=== PATIENT | male | born 1940 | race Caucasian/White ===

== ENCOUNTER 2019-06-09 16:27 | Inpatient (IN) | payer OTHER ==
[~2019-06-09] VITALS: Ht 174 cm; Wt 62.5 kg
[2019-06-09 16:28] VITALS: BP 132/106
[2019-06-09] MEDS ORDERED: LIPITOR40 MG PO (16:38)
[2019-06-09] MEDS ORDERED: CIPRO250 M2 PO (16:39)
[2019-06-09] MEDS ORDERED: CARBIDOPA-LEVO1 EAC5 PO (16:39)
[2019-06-09] MEDS ORDERED: UNICOMPLEX M TA1 TA1 PO (16:40)
[2019-06-09] MEDS ORDERED: CO Q-10100 M1 PO (16:40)
[2019-06-09] MEDS ORDERED: ARICEPT10 M1 PO (16:41)
[2019-06-09] MEDS ORDERED: COLACE100 MG PO (16:41)
[2019-06-09] MEDS ORDERED: CHILDREN'S ASPI81 M1 PO (16:41)
[2019-06-09] MEDS ORDERED: ESCITALOPRAM PO (16:42)
[2019-06-09] MEDS ORDERED: NAMENDA 10 MG T10 MG PO (16:43)
[2019-06-09] MEDS ORDERED: MAGNESIUM250 M1 PO (16:43)
[2019-06-09] MEDS ORDERED: LORAZEPAM 0.50.5 MG PO (16:43)
[2019-06-09] MEDS ORDERED: TOPROL XL25 MG PO (16:45)
[2019-06-09] MEDS ORDERED: NOURIANZ40 MG PO (16:45)
[2019-06-09] MEDS ORDERED: MIRALAX119 GM PO (16:45)
[2019-06-09] MEDS ORDERED: PRAMIPEXOLE ER3 MG PO (16:46)
[2019-06-09] MEDS ORDERED: RYTARY ER 36.21 EACH PO (16:47)
[2019-06-09] MEDS ORDERED: VESICARE 5 MG TA5 M1 PO (16:48)
[2019-06-09] MEDS ORDERED: FLOMAX0.4 MG PO (16:49)
[2019-06-09] MEDS ORDERED: VESICARE10 M1 PO (16:49)
[2019-06-09] MEDS ORDERED: INTERMEZZO3.5 MG SUBLING (16:50)
[2019-06-09 17:35] VITALS: BP 142/74
--- NOTE | 2019-06-09 18:29 | NUR ---
PT. TRANSFERED FROM ER TO [facility] AT 181. PT. ARRIVED ON A GURNEY. HE HAS HIS EYES CLOSED, IS NOT RESPONDING TO NURSES VOICE. HE IS "HUMMING" AND TEARING AT HIS CLOTHING. HIS HAND WAS MOVED SEVERAL TIMES BUT HE RETURNS TO DOING THE SAME THING. VITALS WERE TAKEN. B/P WAS 173/92 PULSE86, TEMP 98.7 AXILLARY, AND RESP 20. HE IS 174 CM IN HEIGHT AND WEIGHS 73 KG.
[2019-06-09 19:28] VITALS: BP 184/88
--- NOTE | 2019-06-10 06:23 | NUR ---
Care transfered 06-09-191929 gained verbal consent from Dena Trinh, pt and DPOA for pt treatment. 1944 Pt in bed supine with eyes open, AAOx1 moaning, when asked about pain pt denies and stated "I just wanted to go home". pt was restless and moving and moaning and changing from sami, to greek and them swedish. Pt was cooperative during assessment, upon auscultation all lung graf clear, RR even and non-labored; HT S1 S2 with elevated pulse of 102, pt did present with anxiety; ABD Active WNL in all four quads ABD flat and soft. Approximately 1999 reviewed pt medication with Dr. Griffiths, and the following medication was d/c Aricept, Nourianz, Ambien, and the following Dr. Griffiths changed Multi-vit with iron and minerals d/c and replaced with Vit; Carbidopa levodopa d/c replaced with Sinmet please refer to emar and medication reconciliation for more information. Pt was seen by Dr. Griffiths in ER with AM machine coil assembler. Pt show no s/s of any acute distress. 629 pt was moved into day room by SHOVE UP in recliner, noted pt was calm and sitting still. Of note, per pt Dena she suggested using apple juice for medication admin. This RN finished the admit that was started approximately at 1814. Zero acute distres noted throughout this shift.
[2019-06-10 07:51] VITALS: BP 129/71
[2019-06-10 08:30] VITALS: BP 129/71
--- NOTE | 2019-06-10 09:55 | NUR ---
TALKED TO PT ANAIS, ON THE PHONE. SHE WAS JUST CHECKING ON HIM AND TO SEE IF HE IS AWAKE. PT SITTING IN DINING ROOM IN RECLINER. PT WAS SLEEPING APPEARS TO HAS SLEEP APNEA DUE TO BREATHING PATTERN. STATED HE WAS NOT ABLE TO DO A SLEEP STUDY, SHE STATED HE PROB. DOES HAVE SLEEP APNEA.
--- NOTE | 2019-06-10 12:15 | NUR ---
PT DID FEED SELF CARROTS AND USED CUP TO DRINK. PT STILL NEEDS ENCOURAGED TO EAT.
--- NOTE | 2019-06-10 16:30 | NUR ---
PT ABLE TO TALK TO ANAIS TODAY. PT HAS BEEN IN RECLINER MOST OF DAY. PT HAS PERIODS OF SLEEPING ON AND OFF. NO AGGRESSION OR ASSAULTIVE BEHAVIOR THIS SHIFT. PT STATED TO SENIOR DATA WAREHOUSE DEVELOPER THAT HE NEEDED TO USE BATHROOM. WHEN TAKEN BACK TO ROOM, HIS BRIEF WAS DRY.
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
[2019-06-10 19:56] VITALS: BP 149/65
[2019-06-10 20:05] VITALS: BP 149/69
--- NOTE | 2019-06-11 04:29 | NUR ---
06-09-18 care transfered 2004 pt sitting in day room AAOx1 pt reported he was at [facility], when reoriented to place, pt became Irritable, frustrated and fussy. After reassuring pt that he is safe and that [facility] was a better fit to assist him and that is why his Dena agreed to the transfer. After speaking with pt became clam after referencing . Upon auscultation Lungs clear, RR even and non-labored on RA; HT S1 S2 RR, Abd active WNL, soft and flat. Pt denies any pain and SI/HI. 2113 medication admin, pt takes pills one at a time with apple juice, no difficulty swallowing noted. Approximately 2199 pt moved from day room to room and reposition in bed and raised head of bed, then brought pt phone so he could talk with . Approximately 2209 pt present calm and cooperative. Moved bedside table right side noted pt has move control over tremors on right side, technical fellow slight stronger than left. Pt was then reposition for comfort and head of bed was lowered and feet slight elevated. Pt denies any pain and SI/HI. Later in evening pt rang sun and RN responded pt wanted water, assisted with water cup. Zero acute distres noted
[2019-06-11 08:55] VITALS: BP 123/67
--- NOTE | 2019-06-11 09:00 | NUR ---
PT AWAKE THIS AM. PT TOOK MEDS WITHOUT ANY ISSUES. PT STATED HE DIDN'T LIKE HIS NEIGHBOR TO TOUCH HIS CHAIR. PT IS IN RECLINER CHAIR. ASSISTED PT WITH SITTING UP BETTER. PT LEGS ARE STIFF. PT WAS ABLE TO FEED SELF AND DRINK JUICE.
--- NOTE | 2019-06-11 10:00 | NUR ---
PT TALKED TO ON THE PHONE. PT TOLD HIS IF HE IS HERE FOR 48 HOURS HE WILL . PT GOES FROM TALKING TO MOANING.
--- NOTE | 2019-06-11 10:25 | NUR ---
PT TALKING TO AGAIN PER HIS REQUEST. PT HIT WALL WITH HIS FIST BEFORE HE TALKED TO HIS .
--- NOTE | 2019-06-11 15:27 | NUR ---
SW met with Pt @ 10 am in the dinning room. Pt asked to speak to his several times. Pt became visibly upset and hit the wall next to where he was sitting. SW asked Pt why he was upset, Pt tearfully stated, " Can you please call my ". SW retrived the phone and called Pt's . SW sat with Pt while he spoke to his . Pt began crying while on the phone with his . Pt ended the call when hospitalist came to talk with Pt. SW spoke with Pt's who stated that the Pt was upset because he did not understand what was going on and did not trust the staff. SW assusred that Pt would be comforted to assist with him calming. SW got off the call with Pt's . SW continued to sit with Pt and offer emotional support. SW asked Pt what his concerns where. Pt stated, " I have been trying to talk to you all about what is going on and the things I need and everyone just walks by me." SW offered an apology and asked Pt what he was needing. Pt wanted to know why he was on the unit and how long he would be here. SW explained that Pt became combative at his alf and average stay on the unit is 3-14 days. Pt seemed okay with the answers. SW continued to assure Pt of his safety and offer support. Pt asked if he could get his nails filed and his glasses. SW filed clients nails and [facility] SW stayed with the Pt until he calmed down and fell asleep.
--- NOTE | 2019-06-11 18:16 | NUR ---
PT TALKING TO HIS ON PHONE. SHE CALLED EARLIER AND HE WANTED TO TALK TO HER AGAIN.
--- NOTE | 2019-06-11 18:50 | NUR ---
PT IS GETTING AGGITATED. PT STATED HE WANTED TO USE BATHROOM. PROVIDED PT A URINAL. PT THROW URINAL DOWN NOGUERA. ASSISTED PT BACK TO DINING ROOM. PT TRYING TO GET UP OUT OF RECLINER. PT DIDN'T UNDERSTAND AND TALKING ABOUT NATZI AND WANTING TO GO HOME.
[2019-06-11 20:15] VITALS: BP 123/67
--- NOTE | 2019-06-12 06:40 | NUR ---
4-26 at start of shift approximately 1848 pt combative with AM RN and Staff, assisted, care transfered at 191, 2014 pt AAOx1 pt reported he was at [facility] It remained combative agitated and hostile, reassured pt he was safe. 0 Manual Apical pulse taken 78 r/t medication administration. For more information please refer to intervention charting. Zero acute distress.
[2019-06-12 08:34] VITALS: BP 128/64
--- NOTE | 2019-06-12 14:16 | NUR ---
HAS HAD MINIMAL VERBALIZATION WITH THIS RN-SPEECH INCOHERNENT AT TIMES FRAGMENTED AND NON-GOAL DIRECTED. REQUIRES ASSIT WITH ALL ADLS-1-2 SBA TO TRANSFER TO/FROM BED AND TOILET. DOES TAKE MEDICATIONS WHOLE WITH APPLESAUCE/PUDDING. SMALL BM THIS SHIFT-INCONTINENT CARE PROVIDED-EPISODES OF RESTLESSNESS AND ATTEMPTING TO GET UP ON OWN DESPITE ATAXIA. ORIENTED TO NAME ONLY. REMAINS ON HIGH FALLS RISK
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
[2019-06-12 19:43] VITALS: BP 158/87
[2019-06-12 20:15] VITALS: BP 158/87
--- NOTE | 2019-06-13 05:27 | NUR ---
care transfered at 06-12-192014 Pt supine in bed, pt hard to arouse and immediately fell back to sleep. Unable to assess SI/HI and pain. 2100 medication administration held r/t sedation. Throughout rounding pt RR maintained even and nonlabored on RA. Zero acute distres noted.
[2019-06-13 09:00] VITALS: BP 153/73
--- NOTE | 2019-06-13 09:23 | NUR ---
ASSUMED CARE AT 0700 THIS MORNING. PT. STABLE, ASLEEP IN RECLINING CHAIR. HE TOOK HIS MEDICATIONS CRUSHED AND IN PUDDING WITHOUT PROBLEMS NOTED. NEEDS ASSISTANCE EATING. MOSTLY THIS MORNING HIS IS LETHARGIC AND SLEEPING. UNABLE TO COMMUNICATE WITH HIM. HE WAS COOPERATIVE WITH ASSESSMENT.
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
[2019-06-13 19:38] VITALS: BP 131/61
--- NOTE | 2019-06-14 04:45 | NUR ---
Assumed care of patient @ 1900. Pt calm et cooperative this shift. Pt isolates in room most of shift. Took medications crushed in applesauce without difficulty. Did not ambulate this shift. VSWNL. Health assessment with no abnormalities other than previously noted. Unable to assess SI/HI as pt was not communicative this shift, but does not demonstrate any acute distress at present time. Currently resting in bed with eyes closed. Will continue to monitor per protocol.
[2019-06-14 07:26] VITALS: BP 110/56
[2019-06-14 09:26] VITALS: BP 110/56
--- NOTE | 2019-06-14 11:12 | NUR ---
ASSUMED CARE THIS MORNING AT 0700. PT. IS SITTING IN A RECLINING CHAIR. HE IS AWAKE. HE IS NOT ACTING OUT THIS MORNING. HE TOOK HIS MEDICATIONS WHEN ASKED WITHOUT PROBLEMS. HE FED HIMSELF HIS BREAKFAST. HIS CALLED AND ASKED FOR AN UPDATE. SHE SPOKE WITH THE PATIENT AFTER OUR CONVERSATION.
[2019-06-14 19:26] VITALS: BP 127/70
--- NOTE | 2019-06-14 23:06 | NUR ---
Assumed care at 1900. At that time was sitting in a recliner, alert, conversant. Pt. denies pain and concerns. He is med compliant. He will be monitored q 12 minutes during the night.
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
[2019-06-15 07:27] VITALS: BP 155/65
--- NOTE | 2019-06-15 12:27 | NUR ---
Sitting in recliner without s/o distress. Sleeeping but awakens with stimuli. Alert to name only, some confused speech and at other times understandable, "Are you going to feed me?" when staff cutting up food. Denies SI/HI. Calm and compliant with meds. Took crushed in yogurt. Breath sounds clear t/o, bilaterally equal. Regular HR auscultated. Color pink with 3 sec capillary refill and palpable peripheral pulses. Incontinent of large amt urine per brief. Active bowel sounds over soft, rounded abdomen. 2 cm cyst per R neck. 1230 Sitting at table eating lunch independently. No s/o distress. called and spoke to him on phone.
[2019-06-15 19:25] VITALS: BP 167/73
--- NOTE | 2019-06-16 05:24 | NUR ---
Assumed care of pt @ 1900. Pt calm et cooperative this shift. Pt unable to appropriately communicate at this time. Pt makes garbled, gurgling sounds but does not articulate any formed words at the present time. Isolated in room all of shift. Took medications crushed in applesauce without difficulty. VSWNL. Health assessment with no abnormalities other than previously noted. Unable to assess SI/HI but pt does not appear to be in any apparent distress at present time. Currently resting in bed with eyes closed. Will continue to monitor per protocol.
[2019-06-16 08:00] VITALS: BP 147/99
--- NOTE | 2019-06-16 09:50 | NUR ---
PATIENT CARE ASSUMED AT 0700 AM - IN CHARLIE CHAIR WHEN ARRIVING ON UNIT IN DINING NOGUERA. PATIENT APPROACHED - IRRITABLE. WANTS TO LEAVE AND QUESTIONED STAFF. PATIENT DIFFICULT TO UNDERSTAND - NOTED UPPER EXTREMETIES SHAKING - CAN BE SHORT - WANTED TO KNOW WHEN HE WAS LEAVING. ADVISED [facility] WEDNESDAY PER DOCUMENTATION - PATIENT ADMINISTERED MEDICATIONS CRUSHED IN YOGURT. TOLERATED WELL AND FINISHED ALL YOGURT. TAKES LENGTH OF TIME BETWEEN SWALLOWS - CALLED TWICE AND DISCONNECTED FROM - BECOMES IRRITABLE WHEN TRYING TO REDIRECT PROPER USE OF CORDLESS PHONE.
--- NOTE | 2019-06-16 13:41 | NUR ---
RT progress note- Patient is limited in leisure participation as he often rests throughout the day in a recliner. He has enjoyed watching videos of ballroom dancing and conversing about his family history in [place]. Patient does display moderate difficulty concentrating on tasks for long periods of time.
[2019-06-16 19:35] VITALS: BP 138/66
[2019-06-16 19:45] VITALS: BP 138/66
--- NOTE | 2019-06-17 04:13 | NUR ---
-03-06 care transfered at 1915; 194 Pt sitting in recliner in day room, PT AAOx1, skin w/d. Pt presents blunt with guarding and fussy. Pt denies pain and SI/HI. During medication admin pt had zero difficults takes with apple juice then RN assisted pt with HS snack. Pt was moved out of day room by SHOE CASER and put in bed. During rounds pt supine resting with eyes closed RR even and non-labored, approximately 0200 pt moaning, respond and pt stated he had a nightmare, reassured then noted pt brief was dry but the chux pad saturated with yellow urine, pt bedding changed and pt wiped clean with wash cloth and barrier cream applied r/t to red indentation on left side left brief off per recommendation of rehab consultant. Pt was covered with clean sheet and blanket. Return to pt room pt was moaning and yelling. Pt reported he wants to go home now. 0305 pt resting supine with eyes closed, RR even and non-labored RA. Of note, bed in lowest position and alarm on. Zero acute distress noted.
[2019-06-17 07:20] VITALS: BP 117/73
--- NOTE | 2019-06-17 11:57 | NUR ---
Sitting in recliner without s/o distress. Keeps eyes closed most of the time, yellow drainage from R eye, no erythema. Alert and orientated to name only. Denies SI/HI. Talking about his favorite movies and landmarks later in morning. Breath sounds clear t/o, diminished in lower lobes. Reg HR auscultated. Color pink with brisk capillary refill and palpable peripheral pulses. Voided small amount concentrated urine in urinal with assistance. Active bowel sounds over soft, flat abdomen. Shaved and eyebrows trimmed. Showered with assistance of 2 staff. Able to take approximately 6 steps with assistance. Currently sitting in day room sleeping in recliner.
--- NOTE | 2019-06-17 16:59 | NUR ---
SW met with patient 1:1 in lieu of group due to COVID-19 restrictions. Patient was pleasant and talked about his son writing a book. He later began to discuss his fear of dying. SW offered support to patient.
[2019-06-17 19:39] VITALS: BP 137/72
--- NOTE | 2019-06-18 05:17 | NUR ---
Assumed care of pt @ 1900. Pt anxious et slightly agitated this shift with difficulty in going to sleep. Pt was given Zyprexa 5mg IM this shift for agitation. Took medications crushed in applesauce without difficulty. Was resting in bed with eyes open at beginning of shift. Pt spoke clearly but in another language most of the shift. Pt denies SI/HI. VSWNL. Health assessment with no abnormalities other than previously noted. Currently resting in bed with eyes closed. Will continue to monitor per protocol.
[2019-06-18 07:31] VITALS: BP 138/62
--- NOTE | 2019-06-18 09:06 | NUR ---
PATIENT CARE ASSUMED AT 0700 AM - PATIENT UP AND SLEEPING IN CHARLIE CHAIR IN DINING NOGUERA. VERY SEDATED - APPETITE POOR - GIVEN MEDICATIONS CRUSHED IN APPLESAUCE. TOLERATED WELL. NON RESPONSIVE VERBALLY BUT DID NOD HIS HEAD TO EXPRESS YES OR NO. IM OF ZYPREXA GIVEN LAST EVENING AT 2300 AND PATIENT REMAINS SLEEPING CURRENTLY.
--- NOTE | 2019-06-18 10:21 | NUR ---
LILA faxed updates too [facility].
[2019-06-18 11:24] LABS: CALCIUM 9.3 mg/dL (8.5-10.1); CREATININE 1.7 mg/dL (0.7-1.3); POTASSIUM 4.1 mmol/L (3.5-5.1)
[2019-06-18 19:50] VITALS: BP 154/96
--- NOTE | 2019-06-18 22:25 | NUR ---
Care assumed of patient at 1915: Patient resting quietly in bed at start of shift. Easily aroused. Calm, pleasant and cooperative. Answering questions appropriately. Stating that he does want to go home. Alert and oriented x3 with occasional confusion noted. Patient took HS medication whole in applesauce. Ate 50% applesauce cup. Drank 1 cup water with medication. Denied pain or discomfort. Patient fell back to sleep quickly after nursing assessment completed. No aggression or agitation observed. No delusional or paranoia behaviors observed.
[2019-06-19 07:28] VITALS: BP 109/61
--- NOTE | 2019-06-19 07:47 | NUR ---
PATIENT UP AND ALERT THIS MORNING. ACTUALLY ACKNOWLEDGED STAFF AND ASKED FOR SOMETHING TO DRINK. CLAIMS VERY THIRSTY. PATIENT APPEARS PLEASED ABOUT DISCHARGE TODAY - WAS LOOKING FOR NOW - DID NOT REALIZE IT WAS 7AM. PATIENT SLEPT ONLY 2 HOURS. ASSUMED CARE OF PATIENT AT 0700 AM.
[2019-06-19] MEDS ORDERED: TOPROL XL25 MG PO (09:10)
[2019-06-19] MEDS ORDERED: NORVASC5 MG PO (09:10)
[2019-06-19] MEDS ORDERED: LEXAPRO 10 MG T10 M1 PO (09:11)
[2019-06-19] MEDS ORDERED: OLANZAPINE10 M2 IM (09:16)
[2019-06-19] MEDS ORDERED: SEROQUEL 50 MG50 MG PO (09:16)
[2019-06-19] MEDS ORDERED: CARBIDOPA-LEVO1 EAC9 PO (09:17)
[2019-06-19] MEDS ORDERED: SINEMET CR 25-1 EACH PO (09:18)
[2019-06-19] MEDS ORDERED: MAGNESIUM400 MG PO (09:19)
--- NOTE | 2019-06-19 10:47 | NUR ---
[facility] D/C note [facility] faxed discharge docs including a temp log to [facility]. [facility] filed this fax and confirmation page in pt's hospital file. No other needs for [facility] team to address at this time.
--- NOTE | 2019-06-19 14:37 | NUR ---
PATIENT TRANSPORTED BY [facility] TO FACILITY AT 1340 VIA PRIVATE SUV. PATIENT SIGNED APPROPRIATE PAPERWORK. PROPERTY REVIEWED AND ALL POSSESSIONS SENT WITH PATIENT. PATIENT WAS ALERT AND AWAKE AND CALM. ALL MEDICAITONS ADMINISTERED PRIOR TO DISCHARGE. PATIENT BROUGHT DOWN VIA WHEELCHAIR. FACILITY CALLED AT 0245 TO ADVISE DEPARTURE AND REPORT -
--- NOTE | 2019-06-20 21:13 | D ---
[facility] [place] [address] DISCHARGE SUMMARY Name: KAYKAY HUBBARD Room #: 518A-A [facility] M.R.#: [id number] Admission: 06/09/19 Attend Phys: Song Griffiths DO Discharge: 06/19/19 Date of : 42 Report #: [id number] THIS REPORT FOR: cc: [facility] - Clinic physician unknown [facility] - Clinic physician unknown Song Griffiths DO ~ THIS REPORT FOR: //name// CC: Song Griffiths [facility] unknown DATE OF SERVICE: 06/19/2019 INPATIENT PSYCHIATRIC DISCHARGE SUMMARY ATTENDING PHYSICIAN: Song Griffiths DO. [facility]ANCH OPERATIONS MANAGER AT THE TIME OF DISCHARGE: Dr. Monahan. 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 SECONDARY DIAGNOSES: Include Parkinson's related psychosis idiopathic and Parkinson's disease with accompanying dyskinesia on top of manic agonist therapy. Additional medical morbidities that the hospitalist was dealing with include hypertension, reasonably controlled; coronary artery disease; history of prior coronary artery bypass graft; acute renal failure on chronic kidney disease stage III, creatinine runs 1.5-1.7; benign prostatic hypertrophy; history of prostate cancer and thrombocytopenia with a platelet count reported at 131,000. DISCHARGE DIET: Regular. He should have an Ensure Enlive with all meals. He can feed himself at times, but should have some supervision at meals. He is largely nonambulatory. I would recommend the physical therapy checking him when he returns to the nursing environment. DISCHARGE MEDICATIONS: We did do some regimen switching during the hospitalization. I did advice Dr. Umesh Swann, who is his movement disorder neurologist at [facility]. Metoprolol succinate 12.5 mg p.o. b.i.d. for hypertension and tachycardia control, hold if pulse less than 60; amlodipine 2.5 mg p.o. daily for hypertension, hold if systolic BP less than 100; Lexapro 10 mg p.o. daily for depression; Seroquel 50 mg p.o. at 10:00 a.m., 3:00 p.m. and 8:00 p.m. for psychosis; carbidopa/levodopa immediate release form 25/100, 1 tab every 0900, 1500, 2100 hours; carbidopa/levodopa CR 25/200, ____ tabs p.o. b.i.d. Also, he gets magnesium supplementation, magnesium oxide 400 mg p.o. daily. [facility] [address] [place] [address] DISCHARGE SUMMARY Name: KAYKAY HUBBARD Room #: 518A-A [facility] [place] ..#: [id number] Admission: 06/09/19 Attend Phys: Song Griffiths, Discharge: 06/19/19 Date of : 42 Report #: [id number] LABORATORY DATA: Significant laboratories this admission. I believe the patient was medically cleared at [facility], so do not have a lot. Chemistries from 06/18/2019, sodium 140, potassium 4.1, chloride 102, bicarbonate 33, BUN 33, creatinine 1.7, estimated GFR 39, glucose 71, calcium 9.3. I believe he did get a liter of normal saline bolus over the weekend due to the increased creatinine. The patient is quite a risk at failure to thrive with given the nature of his advanced Parkinson's disease related anorexia. REASON FOR ADMISSION: Back at the end of May is as follows: A 79-year-old male was sent to [facility] Emergency Room and he received COVID screening in [facility]. Apparently, the patient was combative with staff, refused to live in other patient's room, issues such as this. HOSPITAL COURSE: The patient was admitted to Geriatric Psychiatry Unit. He was on Rytary which is not on the formulary at our hospital which is a combination of short-acting and long-acting carbidopa/levodopa, so we broke that out in immediate release and sinnement CR. In addition, I had discussion with Dr. Swann at regarding antipsychotic selection. Dr. Swann clarified that he had started the patient on Seroquel about a week prior to admission and may have been confused about this as the already told me Seroquel did not work, so I elected to give it a second try as this was a movement disorder specialist preference and thankfully we did have success with this initially of 25 mg 3 times a day, increasing to 50 mg 3 times a day. At the time of discharge, the patient is pleasantly confused. PHYSICAL EXAMINATION: MUSCULOSKELETAL: No gait or station. The patient is max assist even with transferring. MENTAL STATUS EXAMINATION: This is a well-developed, fairly nourished, ill-appearing older than age-appearing male. Attention limited. Concentration limited. Speech slow, deliberate. Thought process nonlinear at times. Thought content confused, disorganized. No psychomotor agitation. No psychomotor retardation. Denied SI or HI. Some helplessness, some hopelessness. Denied auditory, visual, or tactile hallucinations. Memory grossly impaired. Insight impaired, judgment impaired. Fund of knowledge well below premorbid level. 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 PROGNOSIS: At this time is poor given advanced disease and advancing age. The [address] [address] DISCHARGE SUMMARY Name: KAYKAY HUBBARD Room #: 518A-A DIS IN M.R.#: [id number] Admission: 06/09/19 Attend Phys: Song Griffiths DO Discharge: 06/19/19 Date of : 42 Report #: [id number] care that he has required in placement, already in his facility. The patient has no code and hospice should be enrolled as soon as the patient stops eating. <ELECTRONICALLY SIGNED> By: Song Griffiths DO 06/20/19 [id number] Song Griffiths DO /nt
== END 2019-06-19 13:50 | disposition home or self-care (01) | DRG 57 ==
LOC: ER 16:27 → SBH 18:15 → EROBS 18:15 → SBH 18:16
PROVIDERS: Hospitalist; ADMIT Psychiatry & Neurology Psychiatry
DX: G20 Parkinson's disease (principal); F01.51 Vascular dementia, unspecified severity, with behavioral disturbance; N17.9 Acute kidney failure, unspecified; N18.3 Chronic kidney disease, stage 3 (moderate); F02.81 Dementia in other diseases classified elsewhere, unspecified severity, with behavioral disturbance; I12.9 Hypertensive chronic kidney disease with stage 1 through stage 4 chronic kidney disease, or unspecified chronic kidney disease; F32.9 Major depressive disorder, single episode, unspecified; I25.10 Atherosclerotic heart disease of native coronary artery without angina pectoris; D69.6 Thrombocytopenia, unspecified; N40.0 Benign prostatic hyperplasia without lower urinary tract symptoms; Z85.46 Personal history of malignant neoplasm of prostate; I25.2 Old myocardial infarction; Z79.899 Other long term (current) drug therapy; Z79.82 Long term (current) use of aspirin; Z95.1 Presence of aortocoronary bypass graft; Z85.828 Personal history of other malignant neoplasm of skin
CPT/HCPCS: 10880